=== PATIENT | female | born 1955 | race Caucasian/White ===

== ENCOUNTER 2024-07-05 08:26 | Outpatient (CLI) | payer MEDICARE | END 2024-07-05 08:27 | disposition home or self-care (01) | LOC: CSHSLEEP 08:26 | PROVIDERS: ATTEND Family Medicine | DX: G47.33 Obstructive sleep apnea (adult) (pediatric) (principal); R53.83 Other fatigue; E66.9 Obesity, unspecified; Z68.38 Body mass index [BMI] 38.0-38.9, adult; I10 Essential (primary) hypertension | CPT/HCPCS: 95800 ==

== ENCOUNTER 2024-07-31 08:24 | Outpatient (CLI) | payer MEDICARE | END 2024-07-31 08:25 | disposition home or self-care (01) | LOC: CSHSLEEP 08:24 | PROVIDERS: ATTEND Family Medicine | DX: G47.33 Obstructive sleep apnea (adult) (pediatric) (principal); R53.83 Other fatigue; E66.9 Obesity, unspecified; Z68.38 Body mass index [BMI] 38.0-38.9, adult; I10 Essential (primary) hypertension; G25.89 Other specified extrapyramidal and movement disorders | CPT/HCPCS: 95811 ==